=== PATIENT | female | born 1995 | race Two or more races ===

== ENCOUNTER 2017-12-21 13:02 | Emergency (ER) | payer BC, OTHER ==
[~2017-12-21] VITALS: Ht 154.9 cm; Wt 99.8 kg
[2017-12-21 13:02] VITALS: BP 163/106
[2017-12-21] MEDS ORDERED: predniSONE 10 MG TABLET PO ONE (13:30)
[2017-12-21] MEDS ORDERED: diphenhydrAMINE HCL 50 MG CAPSULE PO ONE (13:30)
[2017-12-21] MEDS ORDERED: FAMOTIDINE (20 MG) 20 MG TABLET PO ONE (13:30)
[2017-12-21] MEDS ORDERED: FAMOTIDINE (20 MG) 20 MG TABLET ONE (13:34)
[2017-12-21] MEDS ORDERED: diphenhydrAMINE HCL 50 MG CAPSULE ONE (13:34)
[2017-12-21] MEDS ORDERED: predniSONE 20 MG TABLET ONE (13:35)
== END 2017-12-21 13:44 | disposition home or self-care (01) ==
LOC: ER 13:04
DX: T78.3XXA Angioneurotic edema, initial encounter (principal); T78.49XA Other allergy, initial encounter; X58.XXXA Exposure to other specified factors, initial encounter
CPT/HCPCS: 99284; A4606; J7512; Q0163; Z7610